=== PATIENT | male | born 1965 | race Caucasian/White ===

== ENCOUNTER 2016-06-12 08:22 | Outpatient (CLI) | payer OTHER ==
[~2016-06-12] VITALS: Ht 182.9 cm; Wt 100.0 kg
[~2016-06-12 08:22] MED LIST: ASPIRIN 81M81 MG/TA2 PO; BETAPACE 80MG80 MG PO; CARDIZEM120 MG PO; ELIQUIS 5MG PO; FISH OIL 1000MG1 CAP PO; MOTRIN 800800 MG/TAB PO; NICODERM C21 MG/PATC TD; PREDNISONE10 MG PO; TOPROL XL 25MG25 MG PO; XARELTO15 MG PO
[2016-06-12 08:46] VITALS: BP 117/83; PULSE 70; TEMP 97.9
[2016-06-12] MEDS ORDERED: CEPHALEXIN500 M1 PO (09:50)
== END 2016-06-12 11:46 | disposition home or self-care (01) ==
LOC: COL.RAD 08:22
DX: I48.0 Paroxysmal atrial fibrillation (principal)
CPT/HCPCS: C1764

== ENCOUNTER 2017-03-08 07:53 | Day surgery (SDC) | payer OTHER ==
[~2017-03-08] VITALS: Ht 182.9 cm; Wt 97.3 kg
[~2017-03-08 07:53] MED LIST changes: +CEPHALEXIN500 M1 PO
[2017-03-08] MEDS ORDERED: ASPIRIN 81M81 MG/TA2 PO (08:11)
[2017-03-08 08:22] VITALS: BP 121/90; PULSE 82; TEMP 97.6
[2017-03-08 09:23] VITALS: BP 108/80; PULSE 96; TEMP 97.4
[2017-03-08 09:30] VITALS: BP 101/70; PULSE 76
[2017-03-08 09:45] VITALS: BP 95/71; PULSE 70
[2017-03-08 10:00] VITALS: BP 93/69; PULSE 71
== END 2017-03-08 10:20 | disposition home or self-care (01) ==
LOC: SDCO 07:53
DX: Z12.11 Encounter for screening for malignant neoplasm of colon (principal); D12.5 Benign neoplasm of sigmoid colon; I48.91 Unspecified atrial fibrillation
CPT/HCPCS: J2250; J3010; J7030

== ENCOUNTER 2023-05-30 08:45 | Day surgery (SDC) | payer BC ==
[~2023-05-30] VITALS: Ht 182.9 cm; Wt 82.3 kg
[2023-05-30] VITALS (11 sets, daily range): BP systolic 84–115; BP diastolic 57–74; PULSE 50–63; TEMP 98.6
[2023-05-30 08:24] LABS: HEMATOCRIT 41.8 % (42.0-52.0); HEMOGLOBIN 14.7 g/dl (13.5-18.0); MEAN CELL VOLUME 99 fl (80.0-100.0); MEAN CORPUSCULAR HEMOGLOBIN 35 pg (27-31); MEAN CORPUSCULAR HGB CONC 35 g/dl (33.0-37.0); MEAN PLATELET VOLUME 9.9 fl (7.4-10.4); PLATELET COUNT 232 K/mm3 (130-400); RED BLOOD COUNT 4.23 M/mm3 (4.20-5.60); REDCELL DISTRIBUTION WIDTH-CV 12.4 % (11.5-14.5)
[2023-05-30 08:35] LABS: INR 1.1 (0.8-3.0); PROTHROMBIN TIME 11.4 SECONDS (9.7-12.8)
[2023-05-30 08:37] LABS: CALCIUM 9.5 mg/dL (8.4-10.2); CREATININE, serum 0.88 mg/dL (0.72-1.25); PARTIAL THROMBOPLASTIN TIME 30.4 SECONDS (26.0-37.0); POTASSIUM 3.9 mmol/L (3.5-4.5)
[~2023-05-30 08:45] MED LIST changes: +1/2 NS 1,000 ML IV SCH; +CRESTOR 10MG10 MG PO; +PROTONIX 40MG T40 MG PO; +ZEBETA 5MG5 MG PO
--- NOTE | 2023-05-30 09:47 | NUR ---
SEE MERGE DOCUMENTATION FOR MEDICATION ADMINISTRATION AND INTRA/POST PROCEDURE SEDATION ASSESSMENTS.
[2023-05-30] MEDS ORDERED: Nitroglycerin 100 MCG/ML (Cath Lab) 10 ML VIAL IA SCH (10:23)
[2023-05-30] MEDS ORDERED: Midazolam 2 MG/2 ML VIAL IV SCH (10:24)
[2023-05-30] MEDS ORDERED: Heparin 1,000 UNITS/ML 10 ML Multi-Dose VIAL IV SCH (10:25)
[2023-05-30] MEDS ORDERED: fentaNYL 50 MCG/ML 2 ML VIAL IV SCH (10:27)
[2023-05-30] MEDS ORDERED: Iohexol 350 - 100 ML VIAL IA ONE (10:29)
[2023-05-30] MEDS ORDERED: Verapamil 2.5 MG/ML 2 ML VIAL IA SCH (10:29)
--- NOTE | 2023-05-30 11:17 | NUR ---
Initial visit; Patient thanked [facility] [employer] for looking in on him prior to his surgical procedure and offering encouragement and prayer. [facility] [employer] wished him well.
--- NOTE | 2023-05-30 14:05 | NUR ---
Pt ambulated to EU10 with a steady gait. Pt is scheduled for a C. EKG done. IV started, labs drawn. Meds and HX reviewed with the pt. Consent for the procedure signed. Pt was taken to the rn labor and delivery for the procedure. Once the procedure was complete the pt was brought back to EU10 to recover. The right radial site was assessed no bleeding. Site clean and dry. Pt was offered something to eat and drink. Accepted a pepsi and a meal was ordered. The pt was bedrest for 2hrs post recovery. At the start of hr3 air was taken out of the band about 2 mls every 15 mins. After each air release the site was again assessed. No bleeding assessed. Once all the air was taken out a band-aid was placed on the radial site and the deflated band was reapplied as a remider to limit extremity use. Discharge education and information given to the pt. No questions at this time. Pt exited the unit by wheelchair to daughters car.
== END 2023-05-30 14:09 | disposition home or self-care (01) ==
LOC: COL.CAR 08:45
PROVIDERS: Internal Medicine Cardiovascular Disease
DX: I25.10 Atherosclerotic heart disease of native coronary artery without angina pectoris (principal); I48.0 Paroxysmal atrial fibrillation; E78.2 Mixed hyperlipidemia; Z79.82 Long term (current) use of aspirin; Z79.899 Other long term (current) drug therapy
CPT/HCPCS: J1644; J2250; J3010; Q9967